=== PATIENT | male | born 1995 | race Caucasian/White ===

== ENCOUNTER → 2019-01-12 | Day surgery (SDC) | payer BC ==
[~2019-01-12] MED LIST: LIDOCAINE 1% INJ-PF (10 MG/ML) 30 ML SDV ONE
--- NOTE | 2019-01-12 12:16 | RADIOLOGY REPORT (SQ) ---
EXAM DESCRIPTION: ARTHRO SHOULDER INJECTION; FLUORO/NEEDLE PLACEMENT COMPLETED DATE/TIME: 01/12/2019 9:40 am REASON FOR STUDY: OTHER INSTABILITY, RIGHT SHOULDER (M25.311) M25.311 OTHER INSTABILITY, RIGHT SHOU LDER COMPARISON: None. FLUOROSCOPY TIME: 20 seconds 1 images saved to PACS. LIMITATIONS: None. PROCEDURE: Procedure, risks, benefits and alternatives explained to patient who then gave written co nsent. The right shoulder was marked and a time out was called for correct procedure verification. P osterior entry site marked using fluoroscopic guidance. Shoulder prepped and draped using sterile te chnique. Local anesthesia achieved using 1% lidocaine injection. Hypodermic needle introduced into the joint space under direct fluoroscopic visualization. Non-ionic contrast instilled to confirm intr a-articular position. Dilute gadolinium solution then injected. Needle removed and entry site covere d with sterile bandage. No immediate complications noted. TECHNIQUE: Digital images acquired during fluoroscopy and stored on PACS. Patient immediately take n to the MR suite for additional imaging. INJECTION LOCATION: Posterior right shoulder. CONTRAST TYPE AND AMOUNT: 1 cc omni 300 10 cc Dotarem/Saline mixture. IMPRESSION: SUCCESSFUL NEEDLE PLACEMENT AND INJECTION FOR RIGHT SHOULDER MR ARTHROGRAM USING POSTERI OR APPROACH. COMMENT: Quality ID [id number]: Final reports for procedures using fluoroscopy that document radiation exp osure indices, or exposure time and number of fluorographic images (if radiation exposure indices are not available) TECHNICAL DOCUMENTATION: JOB ID: [id number] [employer]- All Rights Reserved Reading location - IP/workstation name: [email or web address]
--- NOTE | 2019-01-12 12:47 | RADIOLOGY REPORT (SQ) ---
EXAM DESCRIPTION: MRI RT UPPER JOINT WITH COMPLETED DATE/TIME: 01/12/2019 10:07 am REASON FOR STUDY: OTHER INSTABILITY, RIGHT SHOULDER (M25.311) M25.311 OTHER INSTABILITY, RIGHT SHOU LDER COMPARISON: Plain radiograph TECHNIQUE: Right shoulder images acquired and stored on PACS. Oblique coronal, oblique sagittal, and axial imaging to include fat sensitive sequences as T1, water sensitive sequences as FST2/STIR, and contrast sensitive sequences as FST1. LIMITATIONS: None. FINDINGS: JOINT DISTENTION: Adequate distention for interpretation. BONE MARROW AND CORTEX: Normal. No significant osteophytes. No edema or defects. AC JOINT: Type 1 acromion. No significant AC joint arthropathy. GLENOHUMERAL JOINT: Irregular cartilage with medial humeral osteophyte. And no subluxation. ROTATOR CUFF: Intact without significant tendinopathy, partial or full-thickness tears. No peritendin itis. LABRUM AND BICEPS LABRAL COMPLEX: Normal signal in the rotator interval without tear of the superior glenohumeral ligament. Superior labrum, intra-articular long head biceps intact. Distal biceps in no rmal anatomic location in bicipital groove. No paralabral cysts. INFERIOR LABRAL COMPLEX: Bony glenoid and labrum intact. IGHL intact without thickening or tear. No p aralabral cysts. ADJACENT SOFT TISSUES: No masses or nodes. OTHER: No other significant finding. IMPRESSION: There appears to be irregular cartilage along the medial humerus with small osteophyte. No internal derangement. TECHNICAL DOCUMENTATION: JOB ID: [id number] [employer]- All Rights Reserved Reading location - IP/workstation name: [email or web address]
== END ==
LOC: RAD 08:42
PROVIDERS: ATTEND Family Medicine
DX: M25.311 Other instability, right shoulder (principal)
CPT/HCPCS: 73222; 77002; 23350; A9576; J3490

== ENCOUNTER 2019-10-10 12:03 | Emergency (ER) | payer BC, OTHER ==
[2019-10-10 12:19] VITALS: BP 143/87
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
== END 2019-10-10 13:03 | disposition home or self-care (01) ==
LOC: ER 12:03
DX: R51 Headache (principal); S16.1XXA Strain of muscle, fascia and tendon at neck level, initial encounter; M79.18 Myalgia, other site; V43.52XA Car driver injured in collision with other type car in traffic accident, initial encounter; Z88.8 Allergy status to other drugs, medicaments and biological substances
CPT/HCPCS: 99283

== ENCOUNTER 2019-11-01 10:27 | Emergency (ER) | payer OTHER, BC ==
[2019-11-01] MEDS ORDERED: DIPH/PERTUSS(ACELL)/TETANUS VAC/PF 0.5 ML SYR (>=10YO) IM ONE (12:09)
--- NOTE | 2019-11-01 12:17 | ER Document Report ---
ED Medical Screen (RME) - General Chief Complaint: Finger Injury Stated Complaint: FINGER LACERATION Time Seen by Provider: 11/01/19 12:04 Notes: 23-year-old otherwise healthy male presents the emergency department with a right finger laceration sustained when cleaning a stove. Patient initially went to an urgent care but they sent him here because there was concern that there was tendon involvement. Tetanus not up-to-date. Patient states that he has very limited range of motion at the right index finger PIP with flexion. There is a transverse laceration over the PIP approximately 2 cm in length that when manipulated is still oozing blood. Well-appearing in no acute distress, transverse 2 cm laceration over the right dorsal PIP of the index finger oozing blood. The flexor digitorum superficialis is intact and it appears that the flexor digitorum profundus is intact as well to resistance but there is limited TIF range of motion. The extensor tendons do have some movement to resistance. I have greeted and performed a rapid initial assessment of this patient. A comprehensive ED assessment and evaluation of the patient, analysis of test results and completion of medical decision making process will be conducted by an additional ED providers. TRAVEL OUTSIDE OF THE [place] IN LAST 30 DAYS: No - Related Data Allergies/Adverse Reactions: ibuprofen Allergy (Verified 10/10/19 13:06) amoxicillin Adverse Reaction (Verified 11/01/19 12:03) clavulanic acid [From Augmentin] Adverse Reaction (Verified 11/01/19 12:03) Penicillins Adverse Reaction (Verified 11/01/19 12:03) Past Medical History Musculoskeltal Medical History: Reports Hx Musculoskeletal Trauma Traumatic Medical History: Reports: Hx Fractures Past Surgical History: Reports: Hx Adenoidectomy, Hx Oral Surgery, Hx Orthopedic Surgery - Hand reconstruction, Hx Tonsillectomy, Hx Umbilical Hernia - Immunizations Immunizations up to date: No Hx Diphtheria, Pertussis, Tetanus Vaccination: No Physical Exam - Vital signs Vitals: Temp Pulse Resp BP Pulse Ox 98.5 F 94 17 141/95 H 98 11/01/19 10:32 11/01/19 10:32 11/01/19 10:32 11/01/19 10:32 11/01/19 10:32 Course - Vital Signs Vital signs: Temp Pulse Resp BP Pulse Ox 98.5 F 94 17 141/95 H 98 11/01/19 10:32 11/01/19 10:32 11/01/19 10:32 11/01/19 10:32 11/01/19 10:32
--- NOTE | 2019-11-01 12:56 | RADIOLOGY REPORT (SQ) ---
EXAM DESCRIPTION: FINGER RIGHT COMPLETED DATE/TIME: 11/01/2019 12:48 pm REASON FOR STUDY: laceration right index finger COMPARISON: None. NUMBER OF VIEWS: Three views. TECHNIQUE: AP, lateral, and oblique images acquired of the right third finger. LIMITATIONS: None. FINDINGS: MINERALIZATION: Normal. BONES: No acute fracture or dislocation. No worrisome bone lesions. Postsurgical changes in the 4th and 5th metacarpals. SOFT TISSUES: No soft tissue swelling. No foreign body. OTHER: No other significant finding. IMPRESSION: NO RADIOGRAPHIC EVIDENCE OF ACUTE INJURY. COMMENT: SITE OF TRAUMA/COMPLAINT MARKED/STAMP COMPLETED: NOT APPLICABLE. TECHNICAL DOCUMENTATION: JOB ID: [id number] [employer]- All Rights Reserved Reading location - IP/workstation name: [email or web address]
[2019-11-01] MEDS ORDERED: LIDOCAINE 1% INJ-PF (10 MG/ML) 30 ML SDV INJ ONE (13:00)
--- NOTE | 2019-11-01 13:05 | ER Document Report ---
HPI - HPI Time Seen by Provider: 11/01/19 12:04 Pain Level: 2 Context: 23-year-old otherwise healthy male presents the emergency department with a right finger laceration sustained when cleaning a stove. Patient initially went to an urgent care but they sent him here because there was concern that there was tendon involvement. Tetanus not up-to-date. Patient states that he has very limited range of motion at the right index finger PIP with flexion. There is a transverse laceration over the PIP approximately 2 cm in length that when manipulated is still oozing blood. - REPRODUCTIVE Reproductive: DENIES: : Past Medical History - Social History Smoking Status: Former Smoker Family History: Reviewed & Not Pertinent Patient has suicidal ideation: No Patient has homicidal ideation: No Musculoskeletal Medical History: Reports Hx Musculoskeletal Trauma Traumatic Medical History: Reports: Hx Fractures Past Surgical History: Reports: Hx Adenoidectomy, Hx Oral Surgery, Hx Orthopedic Surgery - Hand reconstruction, Hx Tonsillectomy, Hx Umbilical Hernia - Immunizations Immunizations up to date: No Hx Diphtheria, Pertussis, Tetanus Vaccination: No Vertical Provider Document - CONSTITUTIONAL Notes: PHYSICAL EXAMINATION: Reviewed vital signs and charting by RN GENERAL: Alert, interacts well. No acute distress. HEAD: Normocephalic, atraumatic. EYES: Pupils equal and round. Extraocular movements intact. ENT: Oral mucosa moist, tongue midline. NECK: Full range of motion. Trachea midline. LUNGS: Clear to auscultation bilaterally, no wheezes, rales, or rhonchi. No respiratory distress. HEART: Regular rate and rhythm. No murmur ABDOMEN: soft, non-tender. No distention. Bowel sounds present EXTREMITIES: Well-appearing in no acute distress, transverse 2 cm laceration over the right dorsal PIP of the index finger oozing blood. The flexor digitorum superficialis is intact and it appears that the flexor digitorum profundus is intact as well to resistance but there is limited TIF range of motion. The extensor tendons do have some movement to resistance. Sensation intact to light touch PSYCH: Normal affect, normal mood. SKIN: Warm, dry, normal turgor. See extremities section - INFECTION CONTROL TRAVEL OUTSIDE OF THE [place] IN LAST 30 DAYS: No Course - Re-evaluation Re-evalutation: 11/01/19 13:06 2 cm linear laceration over the right dorsal PIP of the index finger. It does appear that the tendons are intact although there is some restriction of movement and pain with movement. 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 A primary closure was performed using 5-0 Ethilon after performing a digital block with lidocaine 1% without epinephrine. Patient tolerated the procedure well. Return precautions given, he was placed in a finger splint. He is stable for discharge. - Vital Signs Vital signs: Temp Pulse Resp BP Pulse Ox 98.5 F 94 17 141/95 H 98 11/01/19 12:03 11/01/19 10:32 11/01/19 12:03 11/01/19 10:32 11/01/19 12:03 Discharge - Discharge Clinical Impression: Laceration Condition: Good Disposition: HOME, SELF-CARE Additional Instructions: Please return to your primary doctor, the ED, or an urgent care in 7 days for suture removal. Return immediately if you develop spreading redness around the wound, pus from the wound, worsening pain, or a fever of >101. Keep the area clean and dry. Wash gently with soap and water twice daily and cover with antibiotic ointment. Please follow-up with orthopedics in the next 3 to 5 days to reassess the integrity of the tendons. Forms: Return to Work Referrals: LOUIS HURD MD [ACTIVE STAFF] - Follow up in 3-5 days
[2019-11-01 14:33] VITALS: BP 123/89
== END 2019-11-01 14:44 | disposition home or self-care (01) ==
LOC: ER 10:27
DX: S61.210A Laceration without foreign body of right index finger without damage to nail, initial encounter (principal); W26.8XXA Contact with other sharp object(s), not elsewhere classified, initial encounter; Y93.E9 Activity, other interior property and clothing maintenance; Y99.0 Civilian activity done for income or pay; Z23 Encounter for immunization
CPT/HCPCS: 73140; 90715; 12001; J3490; 90471; 99283